=== PATIENT | male | born 1965 | race Caucasian/White ===

== ENCOUNTER → 2018-08-04 10:26 | Outpatient (CLI) | payer BC, SELFPAY ==
[2018-08-04 11:49] LABS: Amphetamine Urine VISTA NEGATIVE (<1000 ng/mL); Barbiturate Urine VISTA NEGATIVE (< 200 ng/mL); Benzodiazepine Urine VISTA NEGATIVE (< 200 ng/mL); Cocaine Urine VISTA NEGATIVE (< 300 ng/mL); Ecstacy Urine VISTA NEGATIVE (< 500 ng/mL); Methadone Urine VISTA NEGATIVE (< 300 ng/mL); PCP Urine VISTA NEGATIVE (< 25 ng/mL); THC Urine VISTA NEGATIVE (< 50 ng/mL); Vista UDS pH Range 6
== END ==
PROVIDERS: Family Provider Family Medicine; PCP Family Medicine; Referring Provider Anesthesiology Pain Medicine; Visit Provider Anesthesiology Pain Medicine
DX: F11.20 Opioid dependence, uncomplicated (principal)
CPT/HCPCS: 80307

== ENCOUNTER 2018-09-15 07:21 | Outpatient (RCR) | payer BC, SELFPAY ==
--- NOTE | 2018-09-21 09:18 | HP.OTFCE_ITS ---
HP OT Functional Capacity Eval - Task Lift Floor (Occasional 1-33% of Day): 30 Floor (Frequent 34-66% of Day): 15 Floor (Constant 67-100% of Day): 6 Floor PDL: Light-Medium Knee (Occasional 1-33% of Day): 30 Knee (Frequent 34-66% of Day): 15 Knee (Constant 67-100% of Day): 6 Knee PDL: Light-Medium Waist (Occasional 1-33% of Day): 30 Waist (Frequent 34-66% of Day): 15 Waist (Constant 67-100% of Day): 6 Waist PDL: Light-Medium Shoulder (Occasional 1-33% of Day): 15 Shoulder (Frequent 34-66% of Day): 7 Shoulder (Constant 67-100% of Day): NA Shoulder PDL: Sedentary-Light Overhead (Occasional 1-33% of Day): 5 Overhead (Frequent 34-66% of Day): NA Overhead (Constant 67-100% of Day): NA Overhead PDL: Sedentary - Work Activity/Posture Bending: Occasional Ability (1-33% of day) Squatting: Occasional Ability (1-33% of day) Comments: low occasional ability Kneeling: Occasional Ability (1-33% of day) Comments: low occasional ability with external support Reaching out: Occasional Ability (1-33% of day) Reaching up: Occasional Ability (1-33% of day) Sitting: Frequent Ability (34-66% of day) Walking: Occasional Ability (1-33% of day) Standing: Occasional Ability (1-33% of day) - Reference Duration Sedentary Sedentary Light Light Light Medium Medium Medium Heavy Very Heavy Heavy Occasional (0-33% of day) Frequent (34-66% of day) Constant (67-100% of day) 10 # Negligible Negligible 15 # 8 # Negligible 20 # 10# Negli. 35 # 18 # 7 # 50 # 25 # 10 # 75 # 100 # >100 # 38 # 50 # >50 # 15 # 20 # >20 # - Patient Information Height: 1.8 m Weight:: 170 kg Hand Dominance: Right - Medical History Medical History Including Restrictions: pt states until 10 years ago he was in good health. Pt reports he began having back, shoulder and knee pain with daily tasks. Pt reports he was dx with Arthritis about 10 years ago. Pt states he underwent a left shoulder orthoscopic debridement of right shoulder and right knee meniscus repair. Pt did not have therapy following his shoulder or knee surgery. pt states he feels her recovered as well as he could from the surgeries. Pt states he had a brain aneurysm in 2018, pt unable to say where the aneurysm was, but no residual complications. Pt had physical therapy about ten years ago for his neck and back. Pt states the therapy included traction and exercise. Pt states the therapy for his neck or back did not decrease his symptoms. pt states no dx every really came from seeing his doctor or the therapy- pt has started seeing pain mtg for about three to four months ago, states the injections are helping him at this time. Pt states he does do 20 min of stretching prior to starting his job each day. Pt states he is on no restrictions at this time. - Diagnoses Diagnoses: Bilateral shoulder bone spurs. Right knee meniscus repair. inguinal hernia right and left 2009 - Symptoms Symptoms: Back pain. right leg shooting pain. right sciatic pain. hernia pain bilateral. bilateral hand numbness - Pain Pain: pt reports pain 9 - pt states he did take an anti-inflammatory this am. pt unable to tell me the name of his pain medication- pt states he has been on this medication 2-3 months. 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 Pt did not bring his job description with him this AM. Pt states his job requirements are to climb up two flights of steps to different platforms and drop 2000# of cookie dough into ovens. Overs are 250 feet long and pt is to make sure cookies are cooking correctly he is continually walking the distance of the ovens., pt states he has a lift requirement of 250# but have push and pull 200#. Pt states he works 12-13 hours a day. Pt states he is more painful with daily tasks due to longer hours at work. 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 Pt states he left this position for a increase in income. - Behavioral Behavioral: Pt was cooperative during the assessment. - ADLS ADLS: Pt lives with 15-year-old son in a ranch home. Pt states no issues with home mobility in or out of his home. Pt states his ranch has a basement with a full flight of stairs for laundry- pt states he can perform his ADLs and IADLs at a modified independent level. Pt explained this as needing to stop performing daily tasks due to back pain or sharp shooting pain down is right leg. Pt states it takes time. Pt states with bathing/dressing- Drive ind. does own shopping- pt uses riding mower for [employer]. - Physical Examination ROM: pt demo all range of motion WFL grossly throughout. Pt reported low back pain while performing requested activity. Strength: Pt demo manual muscle testing at 4+/5 BUE grossly throughout. Bilateral hip flexion manual muscle testing at 4-/5 grossly throughout. All other lower extremity testing at 4+/5 grossly throughout. Right Slat Basket Top Maker Strength Average: 80.00 Right Slat Basket Top Maker Strength Percentile: 5.2% Left Slat Basket Top Maker Strength Average: 60.00 Left Slat Basket Top Maker Strength Percentile: 1.8% Right Lateral Pinch Average: 18.00 Right Lateral Pinch Percentile: 25% Left Lateral Pinch Average: 18.00 Left Lateral Pinch Percentile: 50% Right Tripod Pinch Average: 15.00 Right Tripod Pinch Percentile: 25% Left Tripod Pinch Average: 12.66 Left Tripod Pinch Percentile: 10% Comments: pt demo with fair employment educational coord/pinch strength for his age Sensation: right and left tested at 3.22 within normal sensation Fine Motor: 9-hole peg test. right tested at 33 seconds = 0% for his age group. left tested at 32 sec = 0% for his age group. pt demo ability to perform this task but was unable to score in greater than 0% for his age group indicating poo r fine motor skills- with clinical observation pt demo functional use of hands for reaching, pushing/pulling and lifting weighted boxes. Balance: no loss of balance - Non Material Handling Activities Bending: pt demo the ability to preform three time, tne times an ten times rapidly. pt reported back pain at 9/10. pt can perform task on occasional ability. Squatting: pt demo the ability squatting three time and then 4 times. pt was unable to completed squatting ten times and ten times rapidly. pt reported back pain at 9/10. pt can squat with external support on a low occasional ability Kneeling: pt demo the ability to kneel three times with external support- leaning heavily on right UE with task. pt able to perform 6 times and unable to complete task ten times or ten times rapidly. pt reported 9/10 pain during task. Pt can kneel on a low occasional ability with external support. Reaching out/up: pt demo ability to reach up/out three times ten times and ten times rapidly. pt reports back pain at 9/10. pt can reach out/up on a occasional ablility. Walking: Pt ambulated 7 minutes and 11 seconds. Pt demo good reciprocal gait pattern no antalgic movement. Pt reports back pain 9.5/10. Pt can ambulate on an occasional ability. Pt states he struggles with the constant walking and climbing of stairs at work. Standing: PT stood for about 4 min with placing hands on his back -pt reported back pain 9/10. pt can stand on an occasional ability. Sitting: pt demo the ability to sit for 30 min with no expressed or apparent discomfort. pt can sit on a frequent ability Climbing Stairs: pt demo the ability to ascend and descend 20 steps with a reciprocal step pattern with no use of railing. - Dynamic Occasional Lifting Capacity Floor Lift: pt demo the ability to lift 30# maximally from floor level with fair lifting mechanics. Knee Lift: pt demo the ability to lift 30# maximally from knee level with fair lifting mechanics. Waist Lift: pt demo the ability to lift 30# maximally from waist level with fair lifting mechanics. Shoulder Lift: pt demo the ability to lift 15# maximally from shoulder level with fair lifting mechanics. Overhead Lift: pt demo the ability to lift 5# maximally from overhead level with fair lifting mechanics. Carrying: pt demo the ability to carry 15# comfortably for 40 feet with good ability. Comments: pt demo the ability to push/pull 75#. pt pain 9.5/10. pts pain limiting factor with assessment.
== END 2018-09-15 19:00 | disposition home or self-care (01) ==
LOC: OT 07:21
PROVIDERS: Family Provider Family Medicine; PCP Family Medicine; Referring Provider Anesthesiology Pain Medicine; Visit Provider Anesthesiology Pain Medicine
DX: M54.9 Dorsalgia, unspecified (principal)
CPT/HCPCS: 97750

== ENCOUNTER → 2019-03-31 16:51 | Outpatient (CLI) | payer MEDICAID, SELFPAY ==
--- NOTE | 2019-03-31 16:55 | RAD_ITS ---
HISTORY: PAIN IN LOWER BACK MOSTLY ON THE RIGHT SIDE PER PATIENT. HE STATES HAS NUMBNESS IN HIS LEFT LEG THOUGH. PATIENT STATES HAS A HX OF MULTIPLE INJURY'S TO HIS BACK. TECHNIQUE: Lumbar spine 3 views Number of images including paperwork: 3 COMPARISON: None FINDINGS: VERTEBRAE: No acute fracture. VERTEBRAL ALIGNMENT: No traumatic subluxation. Slight left convex lumbar curvature. DISKS AND JOINTS: Multilevel discogenic degenerative changes, moderate to severe at L1-2, L2-3 and L5-S1. Facet arthropathy, most pronounced L3-S1. SOFT TISSUES: Unremarkable paraspinous soft tissues. RAD/Lumbar Spine 2 or 3 Views IMPRESSION: No acute osseous abnormality. Lumbar spondylosis. at 2224 Reported and signed by: Maryjane Otto MD Electronically Signed: Maryjane Otto MD at 22:23 EST Tel , Service support ,
== END ==
PROVIDERS: Family Provider Family Medicine; PCP Family Medicine; Referring Provider Anesthesiology Pain Medicine; Visit Provider Anesthesiology Pain Medicine
DX: M54.9 Dorsalgia, unspecified (principal)
CPT/HCPCS: 72100

== ENCOUNTER → 2019-05-31 10:05 | Outpatient (CLI) | payer MEDICAID, SELFPAY ==
--- NOTE | 2019-05-31 10:17 | RAD_ITS ---
STUDY: X-RAY - RIGHT SHOULDER REASON FOR EXAM: Male, 53 years old. Bilateral shoulder pain. Remote shoulder surgery. TECHNIQUE: 2 view(s) of the shoulder. COMPARISON: None. FINDINGS: No visible fracture. No osseous destruction. Status post remote resection of the distal clavicle. Alignment anatomic. Minimal degenerative changes. Soft tissues unremarkable. RAD/Shoulder min 2 Views IMPRESSION: No acute osseous abnormality. Electronically Signed: Adolfo Bunch, at 6:10 EST Tel , Service support ,
--- NOTE | 2019-05-31 10:23 | RAD_ITS ---
STUDY: X-RAY - LEFT SHOULDER REASON FOR EXAM: Male, 53 years old. Bilateral shoulder pain. Remote history of surgery. TECHNIQUE: 2 view(s) of the shoulder. COMPARISON: None. FINDINGS: No visible fracture. No osseous destruction. Remote resection of the distal clavicle. Alignment anatomic. Very mild degenerative changes. Soft tissues unremarkable. RAD/Shoulder min 2 Views IMPRESSION: No acute osseous abnormality. Electronically Signed: Adolfo Bunch, at 6:11 EST Tel , Service support ,
[2019-05-31 11:05] LABS: Amphetamine Urine VISTA NEGATIVE (<1000 ng/mL); Barbiturate Urine VISTA NEGATIVE (< 200 ng/mL); Benzodiazepine Urine VISTA NEGATIVE (< 200 ng/mL); Cocaine Urine VISTA NEGATIVE (< 300 ng/mL); Ecstacy Urine VISTA POSITIVE (< 500 ng/mL); Methadone Urine VISTA NEGATIVE (< 300 ng/mL); PCP Urine VISTA NEGATIVE (< 25 ng/mL); THC Urine VISTA NEGATIVE (< 50 ng/mL); Vista UDS pH Range 6
== END ==
PROVIDERS: PCP Family Medicine; Referring Provider Anesthesiology Pain Medicine; Visit Provider Anesthesiology Pain Medicine
DX: M25.512 Pain in left shoulder (principal); M25.511 Pain in right shoulder; F11.20 Opioid dependence, uncomplicated
CPT/HCPCS: 73030; 80307

== ENCOUNTER → 2019-10-17 14:34 | Outpatient (CLI) | payer MEDICAID, SELFPAY ==
[2019-10-17 15:37] LABS: Amphetamine Urine VISTA NEGATIVE (<1000 ng/mL); Barbiturate Urine VISTA NEGATIVE (< 200 ng/mL); Benzodiazepine Urine VISTA NEGATIVE (< 200 ng/mL); Cocaine Urine VISTA NEGATIVE (< 300 ng/mL); Ecstacy Urine VISTA NEGATIVE (< 500 ng/mL); Methadone Urine VISTA NEGATIVE (< 300 ng/mL); PCP Urine VISTA NEGATIVE (< 25 ng/mL); THC Urine VISTA NEGATIVE (< 50 ng/mL); Vista UDS pH Range 6
== END ==
PROVIDERS: PCP Family Medicine; Referring Provider Anesthesiology Pain Medicine; Visit Provider Anesthesiology Pain Medicine
DX: F11.20 Opioid dependence, uncomplicated (principal)
CPT/HCPCS: 80307

== ENCOUNTER → 2019-11-14 15:00 | Outpatient (CLI) | payer MEDICAID, SELFPAY ==
[2019-11-14 16:11] LABS: Amphetamine Urine VISTA NEGATIVE (<1000 ng/mL); Barbiturate Urine VISTA NEGATIVE (< 200 ng/mL); Benzodiazepine Urine VISTA NEGATIVE (< 200 ng/mL); Cocaine Urine VISTA NEGATIVE (< 300 ng/mL); Ecstacy Urine VISTA NEGATIVE (< 500 ng/mL); Methadone Urine VISTA NEGATIVE (< 300 ng/mL); PCP Urine VISTA NEGATIVE (< 25 ng/mL); THC Urine VISTA NEGATIVE (< 50 ng/mL); Vista UDS pH Range 6
== END ==
PROVIDERS: PCP Family Medicine; Referring Provider Anesthesiology Pain Medicine; Visit Provider Anesthesiology Pain Medicine
DX: F11.20 Opioid dependence, uncomplicated (principal)
CPT/HCPCS: 80307